=== PATIENT | female | born 1980 | race Caucasian/White ===

== ENCOUNTER → 2017-01-17 | Outpatient (CLI) | payer OTHER ==
--- NOTE | 2017-01-17 21:52 | WWHP ---
DATE OF SERVICE: 01/17/2017 CHIEF COMPLAINT: Patient is here for her routine gynecologic exam. HPI: This is a 36-year-old G2 7, P1-0-3-4 with an LMP of 01/03/2017. She is status post E-Sure tubal sterilization. She states she has been having intermittent abdominal pains for about 5 years. She notices this typically the week before each period and tends to completely resolve after her period starts. She calls it a sharp, constant pain and she rates and an 8 and a half out of 10. She states she currently is having the pain. This is unusually early in her cycle this month. She states this seems to be greater when she is stretching the abdominal region. She also states she notices it more when she is doing abdominal crunches for exercise. She has occasionally noticed a small amount of liquid from the vagina when she does abdominal crunches. She has seen somebody for these abdominal pains. The pain seems to originate just to the right of the umbilicus but it can be felt in the pelvic area especially when pushing this area. She had a pelvic ultrasound on 10/08/2014, which showed probable right ovarian functional cyst measuring 2.0 cm. She did have a CT scan of the abdomen and pelvis on 11/10/2015. This showed a small left ovarian cyst measuring 1.8 cm and the right ovary was unremarkable. The rest of the CT scan was unremarkable. PAST MEDICAL HISTORY: Fibromyalgia, migraine headaches, sciatica, vertigo, hypoglycemia, which is diet-controlled. MEDICATIONS: 1. Motrin 800 mg p.r.n. 2. Fioricet 30 mg p.r.n. 3. Tigan p.r.n. headaches. 4. [place] 5/325 p.r.n. but she states she does not take this daily. 5. Flexeril 10 mg p.r.n. ALLERGIES: ALLERGIES TO ADVIL WHICH CAUSED RASH AND VOMITING. PAST SURGICAL HISTORY: Cholecystectomy 2013, Ensure tubal sterilization 2008 and tonsillectomy at age 4. Past OB history: 4 vaginal deliveries and 3 spontaneous abortions. 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 She states it has been many years since she was treated. She denies any other STDs. SOCIAL HISTORY: She denies tobacco use. She has about 4 alcoholic drinks per month and does use medical marijuana but denies any other drug use. She has been since 1999 and does not work outside the home. FAMILY HISTORY: Paternal grandmother and aunts had gastric cancer. Paternal grandmother had breast cancer and amyloidosis. Grandfather had an NE . Cousins aunts had endometriosis. Grandparents had diabetes. REVIEW OF SYSTEMS: She denies respiratory or cardiac problems. GI: Occasional heartburn and occasional nausea in the middle of the night. PHYSICAL EXAM: Blood pressure 134/66. Height 5 feet 3 inches. Weight 204 pounds. Temperature 96.2, pulse 93. This a well-developed, well-nourished female who is alert and oriented x3 in no acute distress. HEENT is within normal limits. NECK: Supple without mass or thyromegaly. CHEST AND LUNGS: Clear to auscultation. HEART: Regular rate and rhythm. Breasts are without mass or discharge. Axillary exam is negative for adenopathy. BACK: Negative for CVA tenderness. ABDOMEN: Mildly obese, soft with 1+ bowel sounds. There is moderate right abdominal tenderness without rebound tenderness. This seems to be greatest to the right of the umbilicus but she states the pain does radiate to the pelvic region. There is also some right lower quadrant tenderness without rebound tenderness. There are no palpable abdominal masses. The abdomen does not appear distended. PELVIC EXAM: Normal external genitalia. Cervix and vagina appear normal. There is no unusual discharge. No odor is noted. No cervical motion tenderness but there is moderate right adnexal tenderness without palpable mass. There is no left adnexal tenderness or mass. The uterus is midposition, nongravid size. There is some tenderness associated with palpation. Rectovaginal exam does demonstrate a small internal hemorrhoid which itself is nontender. Rectovaginal exam is negative for palpable pelvic masses and there is some pelvic tenderness on the right side as above. EXTREMITIES: Nontender. IMPRESSION: 1. A 36-year-old female with chronic right abdominal and pelvic pain, which seems to be cyclic and improved upon the start of each menstrual period. 2. Right abdominal and pelvic tenderness without palpable mass. 3. Differential diagnosis for her pain can include endometriosis, ovarian cysts, tubal pain, which could be related to the E-Sure tubal sterilization as well as nongynecologic pain. PLAN: 1. Pap smear was performed. 2. Self-breast examination was discussed. 3. GC and Chlamydia testing were obtained from the cervix. 4. The patient will be scheduled for pelvic ultrasound. 5. We will consider referral for her pelvic pain for possible laparoscopic exploratory surgery. 6. She will also return in one year and p.r.n.
== END ==
LOC: WWCWWP 10:42
PROVIDERS: ATTEND Obstetrics & Gynecology
DX: R10.2 Pelvic and perineal pain (principal)
CPT/HCPCS: 87491; 87591

== ENCOUNTER → 2017-01-19 | Outpatient (CLI) | payer OTHER, MEDICARE ==
--- NOTE | 2017-01-19 14:12 | US ---
EXAMINATION TYPE: US pelvic complete DATE OF EXAM: 01/19/2017 COMPARISON: prior us and ct CLINICAL HISTORY: R10.2 Pelvic mass. rt sided pelvic pain; tubal with essure coils TECHNIQUE: Transabdominal (TA) EXAM MEASUREMENTS: Uterus: 8.6 x 4.9 x 5.1 cm Endometrial Stripe: 0.8 cm Right Ovary: 4.4 x 2.8 x 3.4 cm Left Ovary: 3.8 x 2.3 x 3.0 cm 1. Uterus: Anteverted seen with a 2.7 x 2.7 x 2.2cm fibroid at the left fundal uterus; echogenic m etallic coils seen consistent with essure 2. Endometrium: wnl 3. Right Ovary: seen with a 2.6cm cyst 4. Left Ovary: wnl 5. Bilateral Adnexa: wnl 6. Posterior cul-de-sac: no free fluid seen IMPRESSION: 1. Leiomyomatous change of the uterus. 2 simple appearing cyst right ovary.
== END | disposition home or self-care (01) ==
LOC: RADUSWWP 12:24
PROVIDERS: ATTEND Obstetrics & Gynecology
DX: D25.9 Leiomyoma of uterus, unspecified (principal); N83.201 Unspecified ovarian cyst, right side
CPT/HCPCS: 76856

== ENCOUNTER → 2017-05-03 | Outpatient (CLI) | payer OTHER ==
[2017-05-03 12:24] LABS: Hepatitis B Surface Ag Index 0.04
[2017-05-03 12:42] LABS: Hepatitis C Virus IgG Ab Negative (Negative)
[2017-05-03 17:53] LABS: Treponemal Ab Non-Reactive (Non-Reactive)
--- NOTE | 2017-05-03 18:34 | WWPN ---
[facility] - PROGRESS NOTE DATE OF DICTATION: 05/03/2017 CHIEF COMPLAINT: Spousal infidelity. HISTORY OF PRESENT ILLNESS: This is a 36-year-old G7, P1-0-3-4 who is status post tubal sterilization. The patient was recently here on 01/17/17 for her annual examination. She states she found out her was unfaithful and has been having sexual activity with multiple sexual partners. She believes he has been with ten or so sexual partners prior to her finding out about his infidelity. She has not been sexually active since she caught him. She is requesting STD testing. She denies vaginal discharge, odor or pruritus. She also denies any genital lesions. REVIEW OF SYSTEMS: She denies fever or any vaginal symptoms, as in the HPI. PHYSICAL EXAM: Blood pressure 106/75, height 5 feet 3 inches, weight 183 pounds. Patient is afebrile. Pulse is 103. This is a well-developed, well-nourished white female who is alert and oriented x3, in no acute distress. ABDOMEN: Soft, nontender, without palpable masses. PELVIC EXAM: Normal external genitalia. Cervix and vagina reveal a small amount of thin, clear discharge without odor. The cervix appears normal and not inflamed. There is no cervical motion tenderness. The uterus is mid position, non-gravid size and non- tender. There are no palpable adnexal masses or tenderness. Saline wet mount reveals positive clue cells, and this is negative for trichomonas. IMPRESSION: 1. Cersee-flzyy-pllk-old female who is status post tubal sterilization with signs of bacterial vaginosis. 2. Spousal infidelity with possible STD exposure. PLAN: 1. Metronidazole 500 mg b.i.d. x7 days. She is instructed to avoid alcohol consumption while she takes this medication. 2. GC and chlamydia testing from the cervix was obtained. Blood testing will also include HIV, RPR, hepatitis B surface antigen and hepatitis C antibody. 3. The patient was instructed to call if she is having any STD symptoms such as genital lesions or blisters. 4. STD prevention was discussed. 5. The [place] pamphlet on Who To Call was given to the patient in case she feels the need for counseling or child protective services social worker. 6. She will also return in December of 2017 for her annual examination and p.r.n. TOTAL TIME SPENT WITH PATIENT: 20 minutes. CATIA / DANEN: [id number] /
== END | disposition home or self-care (01) ==
LOC: WWCWWP 09:56
PROVIDERS: ATTEND Obstetrics & Gynecology
DX: Z11.3 Encounter for screening for infections with a predominantly sexual mode of transmission (principal)
CPT/HCPCS: 36415; 86780; 86803; 87340; 87390; 87491; 87591

== ENCOUNTER → 2018-02-07 | Outpatient (CLI) | payer MEDICARE, OTHER ==
[2018-02-07 11:06] VITALS: BP 104/71; PULSE 79; RESP 18; TEMP 98.4; BMI 32.8
--- NOTE | 2018-02-07 11:53 | P.HPOB ---
History of Present Illness H&P Date: 02/07/18 Chief Complaint: The patient is here for routine gynecologic exam. This is a 37-year-old within LMP of 01/30/2018. The patient status post Essure tubal sterilization. She states or periods are regularly every month but is now having premenstrual headaches about 3 days before the start of her menses. She also has been experiencing some small clients with her. They can be up to quarter size. She also continues to have right-sided pelvic pain during her menses. She has had intermittent right abdominal and pelvic pains for several years. She states she has stopped all medications that she has taken for fibromyalgia and headaches. Review of Systems She has lost about 19 pounds over the last year. She denies respiratory, cardiac, or G.I. problems. Past Medical History Past Medical History: Fibromyalgia Additional Past Medical History / Comment(s): Migraine headaches, sciatica, vertigo, hypoglycemia (diet controlled). 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 History of Any Multi-Drug Resistant Organisms: None Reported Past Surgical History: Cholecystectomy, Tonsillectomy, Tubal Ligation (Essure tubal sterilization 2008) Additional Past Surgical History / Comment(s): essure 2008 Past Anesthesia/Blood Transfusion Reactions: No Reported Reaction Past Psychological History: No Psychological Hx Reported Smoking Status: Never smoker Past Alcohol Use History: Occasional Past Drug Use History: Marijuana Additional Drug Use History / Comment(s): medical Additional History: She is 2017 and is currently not seeing anybody this time. She did have a brief heterosexual relationship and a homosexual relationship since her divorce. - Past Family History Father Family Medical History: No Reported History Mother Family Medical History: COPD Additional Family Medical History / Comment(s): arthritis Medications and Allergies Home Medications Medication Instructions Recorded Confirmed Type No Known Home Medications [No 02/07/18 02/07/18 History Known Home Medications] Allergies Allergy/AdvReac Type Severity Reaction Status Date / Time No Known Allergies Allergy Verified 02/07/18 11:09 Exam - Vital Signs Vital signs: Vital Signs Temp Pulse Resp BP 02/07/18 11:00 98.4 F 79 18 104/71 Intake and Output 02/06/18 02/07/18 02/07/18 22:59 06:59 14:59 Other: Weight 83.915 kg Height 5'3", BMI 32.8. This is a well-developed well-nourished white female who is alert and oriented times 3 in no acute distress. HEENT: Within normal limits. NECK: Supple without mass or thyromegaly. CHEST AND LUNGS: Clear to auscultation. HEART: Regular rate and rhythm. BREASTS: Are without mass or discharge. AXILLARY EXAM: Negative for adenopathy. BACK: Negative for CVA tenderness. ABDOMEN: Soft, nontender, without palpable masses. PELVIC EXAM: Normal external genitalia. Cervix and vagina appear normal. There is no cervical motion tenderness. There is no unusual discharge. There is no evidence of prolapse. The uterus is midposition, nongravid size and nontender. There are no palpable adnexal masses but there is mild right pelvic tenderness.. RECTAL EXAM: rectovaginal exam is negative for mass or tenderness and is negative for occult blood. EXTREMITIES: Nontender. IMPRESSION: 1. 37-year-old female with chronic right pelvic pain and dysmenorrhea. Status post Essure tubal sterilization. Previous ultrasound done for the same pain showed a small uterine fibroid on 01/19/2017. Differential diagnosis will also include endometriosis, pain from the Essure coils, adenomyosis or pelvic adhesions 2. Premenstrual headaches. 3. History of spousal infidelity in 2017. PLAN: 1. Pap smear was deferred fish had a normal one last year. 2. Self breast awareness was discussed. 3. GC and Chlamydia screening were obtained from the cervix. 4. Blood STD screening will include HIV, RPR, hepatitis B surface antigen, and hepatitis C antibody. This will be drawn today. 5. Anaprox DS 1 PO b.i.d. PRN for the menstrual headache and menstrual pain. An electronic prescription will be sent to [facility] pharmacy. 6. She'll return in one year in PRN. If pain is not improving or worsening hypermenorrhea, I have recommended that we refer her for possible endometrial ablation or possible hysterectomy.
[2018-02-07 16:34] LABS: Hepatitis C IgG Antibody Non-Reactive (Non-Reactive)
[2018-02-07 18:03] LABS: HIV AB P24 Non-Reactive (Non-Reactive); HIV P24 AG Non-Reactive (Non-Reactive)
== END | disposition home or self-care (01) ==
LOC: WWCWWP 10:48
PROVIDERS: ATTEND Obstetrics & Gynecology
DX: Z11.3 Encounter for screening for infections with a predominantly sexual mode of transmission (principal)
CPT/HCPCS: 36415; 86780; 86803; 87340; 87390

== ENCOUNTER 2018-07-25 08:22 | Emergency (ER) | payer MEDICARE, OTHER ==
[2018-07-25 08:36] VITALS: BP 117/87; PULSE 72; RESP 18; TEMP 97.6
--- NOTE | 2018-07-25 09:17 | ED ---
General Adult HPI - General Chief complaint: Extremity Problem,Nontraumatic Stated complaint: Left Leg Pain Time Seen by Provider: 07/25/18 08:40 Source: patient, RN notes reviewed Mode of arrival: ambulatory Limitations: no limitations - History of Present Illness Initial comments: Patient 37-year-old female presenting to the emergency room today with a chief complaint of left-sided leg pain. Patient does admit that she was changing a tire 3 weeks ago. She denied any injury at the time but stated later that day she felt some pain in the left lower leg. She states it starts in the left hip area radiates down to the calf. She states feels tight at times. It is worse with certain movements. Patient denies any bowel or bladder incontinence retention. Denies any saddle anesthesia. She does admit that she was seen at [facility] for this complaint 2 weeks ago given anti- inflammatories, muscle relaxers and steroids. She states she's had little relief. Patient also admits that she had x-rays, ultrasound obtained at that time. She states she's not on any control. Patient denies any other complaints currently. Patient denies any recent fever, chills, shortness of breath, chest pain, abdominal pain, nausea or vomiting, numbness or tingling, dysuria or hematuria, constipation or diarrhea, headaches or visual changes, or any other complaints. - Related Data Previous Rx's Medication Instructions Recorded Naproxen Sodium [Anaprox DS] 550 mg PO Q12HR PRN #25 tab 02/07/18 Baclofen 10 mg PO TID #20 tab 07/25/18 Dexamethasone 0.75 mg PO DIRECTED #12 tablet 07/25/18 Naproxen [Naprosyn] 500 mg PO BID #20 tablet 07/25/18 Allergies Allergy/AdvReac Type Severity Reaction Status Date / Time ibuprofen [From Advil] Allergy Unknown Verified 07/25/18 08:36 Review of Systems ROS Statement: Those systems with pertinent positive or pertinent negative responses have been documented in the HPI. ROS Other: All systems not noted in ROS Statement are negative. Past Medical History Past Medical History: Fibromyalgia Additional Past Medical History / Comment(s): Migraine headaches, sciatica, vertigo, hypoglycemia (diet controlled). 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 History of Any Multi-Drug Resistant Organisms: None Reported Past Surgical History: Cholecystectomy, Tonsillectomy, Tubal Ligation Additional Past Surgical History / Comment(s): essszuie 2009 Past Anesthesia/Blood Transfusion Reactions: No Reported Reaction Past Psychological History: No Psychological Hx Reported Smoking Status: Never smoker Past Alcohol Use History: Occasional Past Drug Use History: Marijuana - Past Family History Father Family Medical History: No Reported History Mother Family Medical History: COPD Additional Family Medical History / Comment(s): arthritis General Exam - General Exam Comments Initial Comments: General: The patient is awake and alert, in no distress, and does not appear acutely ill. Eye: There is normal conjunctiva bilaterally. No signs of icterus. Ears, nose, mouth and throat: There are moist mucous membranes and no oral lesions. Neck: The neck is supple, there is no tenderness or JVD. Cardiovascular: There is a regular rate and rhythm. No murmur, rub or gallop is appreciated. Respiratory: Lungs are clear to auscultation, respirations are non-labored, breath sounds are equal. No wheezes, stridor, rales, or rhonchi. Musculoskeletal: Normal ROM. No tenderness in the thoracic or lumbar spine. Tender over the left SI joint. Strength 5/5. Sensation intact. Pulses equal bilaterally 2+. Neurological: A&O x 3. CN II-XII intact, There are no obvious motor or sensory deficits. Coordination appears grossly intact. Speech is normal. Skin: Skin is warm and dry and no rashes or lesions are noted. Psychiatric: Cooperative, appropriate mood & affect, normal judgment. Limitations: no limitations Course Vital Signs 07/25/18 08:34 Temperature 97.6 F Pulse Rate 72 Respiratory 18 Rate Blood Pressure 117/87 O2 Sat by Pulse 100 Oximetry Medical Decision Making - Medical Decision Making 37-year-old female presenting for left leg pain over the last 3 weeks. Does admit that it started after changing a tire 3 weeks ago. Has been seen had x- rays and ultrasound obtained. Patient was on anti-inflammatories, muscle relaxer, steroids. She states these are all out she has nothing currently for the symptoms. Pains worse with certain movements. She is tender over the SI joint. Patient will be treated with anti-inflammatories, muscle relaxers and steroids and advised follow-up the family doctor over the next 2-5 days. Discussed with patient about further evaluation and possible MRI if symptoms are not improving. Advised return if symptoms increase or worsen. Disposition Clinical Impression: Acute lumbar radiculopathy Disposition: HOME SELF-CARE Condition: Good Instructions: Lumbar Radiculopathy (ED) Additional Instructions: Please use medication as discussed. Please follow-up with family doctor in the next 25 days. Please return to emergency room if the symptoms increase or worsen or for any other concerns. Prescriptions: Baclofen 10 mg PO TID #20 tab Dexamethasone 0.75 mg PO DIRECTED #12 tablet Naproxen [Naprosyn] 500 mg PO BID #20 tablet Is patient prescribed a controlled substance at d/c from ED?: No Referrals: Don Gleason DO [Primary Care Provider] - 1-2 days Time of Disposition: 09:17
== END 2018-07-25 09:25 | disposition home or self-care (01) ==
LOC: EC 08:22
DX: M54.16 Radiculopathy, lumbar region (principal); Z88.6 Allergy status to analgesic agent
CPT/HCPCS: 99283

== ENCOUNTER → 2024-11-06 | Outpatient (CLI) | payer OTHER ==
--- NOTE | 2024-11-06 22:59 | XR ---
EXAMINATION TYPE: XR thoracic spine , XR lumbar spine 2 or 3V DATE OF EXAM: 11/06/2024 3:51 PM COMPARISON: None CLINICAL INDICATION: Female, 43 years old with history of M546 BACK PAIN; PHH, pain TECHNIQUE: XR thoracic spine , XR lumbar spine 2 or 3V 3 views of the lumbar spine and 3 views of the thoracic spine FINDINGS: No evidence of acute fracture. There is scattered multilevel disk space narrowing without loss of ve rtebral body height. There is normal alignment of the thoracic vertebral bodies. Scattered osteophyte formation along the anterior and lateral aspects of the vertebral bodies. Neural foramen are patent given limitations of this exam. Spinal canal appears patent. Upper quadrant cholecystectomy clips. Tu bal ligation devices bilaterally. IMPRESSION: 1. No acute osseous pathology. 2. [id number] multilevel degeneration changes of the spine. [facility], , 11/06/2024 10:57 PM
--- NOTE | 2024-11-07 07:43 | MM ---
Reason for Exam: Screening (asymptomatic). Baseline mammogram. Patient History: Menarche at age 11. First Full-Term at age 14. Mother had breast cancer, age 57. Last menstrual period: 10/11/2024 Risk Values: Adele 5 year model risk: 1.0%. NCI Lifetime model risk: 12.4%. Prior Study Comparison: Patient's first Mammogram. Tissue Density: There are scattered areas of fibroglandular density. Findings: Analyzed By CAD. There are 2 small nearby measuring 5 to 6 mm outer aspect right breast approximately 4 to 5 cm distance from nipple and further workup . Overall Assessment: Incomplete: need additional imaging evaluation, BI-RAD 0 Management: Diagnostic Breast Ultrasound of the right breast. Attempted targeted ultrasound.. Patient should continue monthly self-breast exams. A clinical breast exam by your physician is recommended on an annual basis. This exam should not preclude additional follow-up of suspicious palpable abnormalities. Note on Adele scores and lifetime risk: 1. A Adele score greater than 3% is considered moderate risk. If this is the case, consider specialist referral to assess eligibility for a risk reducing agent. 2. If overall lifetime risk for the development of breast cancer is 20% or higher, the patient may qualify for future screening with alternating mammogram and breast MRI. [facility], , 11/07/2024 7:40 AM. Electronically signed and approved by: Monster Escoto M.D.
== END | disposition home or self-care (01) ==
LOC: RADMAMWWP 14:52
PROVIDERS: ATTEND Family Medicine
DX: Z12.31 Encounter for screening mammogram for malignant neoplasm of breast (principal); R92.323 Mammographic fibroglandular density, bilateral breasts; M51.360 Other intervertebral disc degeneration, lumbar region with discogenic back pain only; Z80.3 Family history of malignant neoplasm of breast
CPT/HCPCS: 72070; 72100; 77067

== ENCOUNTER → 2024-11-15 | Outpatient (CLI) | payer OTHER ==
--- NOTE | 2024-11-15 08:16 | USB ---
Reason for Exam: Additional evaluation requested from abnormal screening. Patient History: Menarche at age 11. First Full-Term at age 14. Mother had breast cancer, age 57. Risk Values: Adele 5 year model risk: 1.0%. NCI Lifetime model risk: 12.4%. Technique: Method: Targeted. Prior Study Comparison: 11/06/2024 Bilateral MG screening mammo w CAD, PH[facility]. Findings: The lateral section of the breast of the right breast, the axilla of the right breast and the retroareolar of the right breast were scanned. A targeted US of up to 6-12 o'clock quadrants of the right breast and retro-areolar region were reviewed. There is a benign appearing cyst at the 9:00 position measuring 1 x 0.5 cm. There is a benign-appearing cyst at the 8:00 position measuring 5 x 3 mm. Overall Assessment: Probably benign, BI-RAD 3 Management: Diagnostic Mammogram of the right breast. A clinical breast exam by your physician is recommended on an annual basis and results should be correlated with mammographic findings. This exam should not preclude additional follow-up of suspicious palpable abnormalities. Results were given to the patient verbally at the time of exam. [facility], , 11/15/2024 8:10 AM. Electronically signed and approved by: Titus Ellis M.D. [facility]
== END | disposition home or self-care (01) ==
LOC: RADUSWWP 07:31
PROVIDERS: ATTEND Family Medicine
DX: R92.8 Other abnormal and inconclusive findings on diagnostic imaging of breast (principal); Z80.3 Family history of malignant neoplasm of breast